=== PATIENT | female | born 1975 | race Asian ===

== ENCOUNTER 2019-06-06 12:48 | Outpatient (CLI) | payer OTHER ==
--- NOTE | 2019-06-06 16:38 | SLEEP CARE CONSULTATION ---
Information from patient questionnaire entered by Courtney Morrison. I have reviewed and concur with the information entered by Courtney Morrison. This document represents the service I personally performed and the decisions made by me, Jodi Christopher MD, [facility], [place]. History of Present Illness Reason for Visit: New patient Chief Complaint: reports: Snoring Duration of Symptoms: more than 10 years Usual bedtime: 10:30 pm Time it takes to fall asleep: 10-20 min Snores at night: Yes Sleeps alone due to snoring: No Number of times waking at night: 1-2 Toss, Turn, or Twitch while sleeping: Yes Recalls having dreams: Yes Usually gets out of bed at: 5:30am Feels refreshed in the morning: Yes Morning headache: Yes Sleepy or fatigued during the day: No Ever fallen asleep while driving: No Takes day naps: No Dreams during day naps: No Prior sleep studies: No Additional HPI information: I had the pleasure of seeing Ms. Valencia today regarding the possibility of her having a sleep disorder. As you know, she is a 44 year old lady who complains of loud snore. The patient tells me that she normally goes to bed around 10:30 pm, and it takes her approximately 10 - 20 minutes to fall asleep. She has not been told that she snores loudly or irregularly at night. She has never been observed to stop breathing in her sleep. Her spouse sleeps in the same bed. He has obstructive sleep apnea-hypopnea and uses a CPAP. She can recall waking up on the average of 1 - 2 times during the night. She has awakened occasionally because of choking and having to gasp for air. There is a lot of tossing and turning in her sleep. No somniloquy (sleep talking) or somnambulism (sleep walking). Generally she can recall having dreams. In the morning she usually gets up out of the bed around 5:30 a.m. not feeling refreshed nor rested. She occasionally a morning headache that does not last long. During the day she complains of feeling sleepy and fatigued. Her score on Rupert Sleepiness Scale is 8 out of 24. She has never fallen asleep while driving nor has had any accident due to sleepiness. She usually does not take naps during the day. Upon falling asleep during the day she denies having vivid dreams. She has had sleep paralysis. No symptoms of restless leg syndrome. She denies having impaired concentration during the day. 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 Patient is and lives in [place]. Have you smoked in the past 12 months: No Alcohol use: Yes Alcohol amount and frequency: 1 glass on occasion Caffeine use: No Family History Family history of sleep disordered breathing: No Allergies and Home Medications Drug allergies reviewed: Yes (NKDA) Home medication list reviewed: Yes (losartan) Review of Systems Cardiovascular: reports: high blood pressure Respiratory: denies: shortness of breath, wheeze, sputum production, chronic cough, other Gastrointestinal: denies: heartburn, difficulty swallowing, nausea, vomitting, diarrhea, abdominal pain, other Urinary: denies: incontinence, frequency, urgency, impotence, other Neurological: denies: headaches, seizure, head trauma, disorientation, speech dysfunction, gait or balance problems, fainting or unconsciousness, other Psychiatric: denies: Attention Deficit Hyperactivity, anxiety, depression, mood disorder, claustrophobia, other Ear/Nose/Throat: reports: nasal congestion Endocrine: denies: thyroid disease, history of goiter, sluggishness, too hot or cold, excessive thirst, increased appetite, increased urination, unexplained weakness, other Musculoskeletal: reports: back pain Immunologic: denies: sneezing, rash, itching, allergies to food or environment, other Physical Exam Height: 5 ft Weight: 110 lb (Physical exam was deferred due to the Covid-19 epidemic) Body Mass Index: 21.4 BMI Classification: Healthy weight Impression and Plan IMPRESSION: 1. Possible Obstructive Sleep Apnea-Hypopnea Syndrome, as suggested by history of loud snoring, nocturnal choking, and morning headache. Untreated obstructive sleep apnea can also cause hypertension. Pathophysiology of sleep-disordered breathing was discussed. I recommend proceeding to polysomnography to confirm the diagnosis and to assess severity. I informed the patient of what the sleep studies involve and after some discussion, she agreed to proceed. Plan: 1. Schedule an in-laboratory polysomnography. 2. Avoid long distance driving or when feeling sleepy. 3. Avoid alcohol, sedative and muscle relaxant around bedtime. 4. Return after the study to discuss results. I spent 100% of this visit face to face with the patient with greater than 50% of this was spent time counseling the patient and coordination of care.
== END 2019-06-06 12:49 | disposition home or self-care (01) ==
LOC: SC 12:48
PROVIDERS: ATTEND Internal Medicine Pulmonary Disease
DX: R06.83 Snoring (principal); R51 Headache
CPT/HCPCS: 99203; 99212

== ENCOUNTER 2019-06-15 20:35 | Outpatient (CLI) | payer OTHER | END 2019-06-15 20:36 | disposition home or self-care (01) | LOC: SC 20:35 | PROVIDERS: ATTEND Internal Medicine Pulmonary Disease | DX: R06.83 Snoring (principal); I10 Essential (primary) hypertension; R51 Headache | CPT/HCPCS: 95810 ==

== ENCOUNTER 2019-06-20 12:42 | Outpatient (CLI) | payer OTHER ==
--- NOTE | 2019-06-20 13:40 | SLEEP CARE CONSULTATION ---
Information from patient questionnaire entered by Courtney Morrison. I have reviewed and concur with the information entered by Courtney Morrison. This document represents the service I personally performed and the decisions made by me, Jodi Christopher MD, [facility]. History of Present Illness Initial [place] Sleepiness Scale score: 8 Current [place] Sleepiness Scale score: 8 Additional HPI information: HPI: returned for follow up of the sleep study she had on 06/15/19. The polysomnography showed that the patient had reduced sleep efficiency due to a prolonged awakening in the middle of the night. Except for mild sleep fragmentation, the sleep architecture was normal. Respiratory monitoring showed no significant sleep disordered breathing (AHI = 0.2) or hypoxia (alverto oxygen saturation of 92%). The patient did not sleep supine during this study (supine AHI = 0.0; non-supine = 0.18). Snore was light to moderate in intensity. There was no significant periodic leg movement of sleep. Cardiac rhythm was normal sinus rhythm without significant arrhythmia. No abnormal behavior (parasomnia) observed during the night. The patient was informed of these findings. I explained to her that the sleep study was normal. She did snore lightly to moderately loud. Allergies and Home Medications Drug allergies reviewed: Yes Home medication list reviewed: Yes Review of Systems Review of systems same as previous: Yes Physical Exam Vital signs obtained and entered by: Physical exam is deferred because the Coronavirus epidemic. Impression and Plan IMPRESSION: 1. Primary Snore (ICD-10 R06.83), light to moderate, but no significant sleep disordered breathing. The patient does not sleep supine at home. Oral appliancea mandibular advancing deviceis recommended for treatment of snore. PLAN: 1. Prescription made for an oral appliance for snore. She was recommended to give the treatment to her dentist. 2. Return for follow up on as needed basis. I spent 100% of this visit face to face with the patient with greater than 50% of this was spent time counseling the patient and coordination of care.
== END 2019-06-20 12:43 | disposition home or self-care (01) ==
LOC: SC 12:42
PROVIDERS: ATTEND Internal Medicine Pulmonary Disease
DX: R06.83 Snoring (principal)
CPT/HCPCS: 99212; 99213

== ENCOUNTER 2020-11-27 14:56 | Outpatient (CLI) | payer OTHER ==
--- NOTE | 2020-12-11 12:09 | Mammography Report ---
BILATERAL DIGITAL SCREENING MAMMOGRAM 3D/2D: 11/27/2020 CLINICAL: Routine screening. Comparison is made to exams dated: 12/30/2017 mammogram and 01/05/2017 mammogram - [facility]. The tissue of both breasts is heterogeneously dense. This may lower the sensitivity of mammograph y. No significant masses, calcifications, or other findings are seen in either breast. There has been no significant interval change. IMPRESSION: NEGATIVE There is no mammographic evidence of malignancy. A 1 year screening mammogram is recommended. This exam was interpreted at Station ID: [id number]. NOTE: For mammograms, a report in lay terms will be sent to the patient. Approximately 15% of breast malignancies will not be visualized mammographically. In the management of a palpable breast mass, a negative mammogram must not discourage biopsy of a clinically suspicious lesion. Electronically Signed By: Frank Jules M.D., jr/ioana:12/11/2020 10:21:42 ACR BI-RADS Category 1: Negative 3341F PARENCHYMAL PATTERN: (D) - The breast(s) demonstrate(s) heterogeneously dense fibroglandular shayy valdes. BI-RADS CATEGORY: (1) - 1 RECOMMENDATION: (ANNUAL) - Recommend routine annual screening mammography. [id number] 1 year screening LATERALITY: (B)
== END 2020-11-27 14:57 | disposition home or self-care (01) ==
LOC: DI.N 14:56
DX: Z12.31 Encounter for screening mammogram for malignant neoplasm of breast (principal)

== ENCOUNTER 2023-11-15 07:30 | Outpatient (CLI) | payer OTHER ==
[2023-11-15 14:15] LABS: CALCIUM 9.2 mg/dL (8.5-10.3); CREATININE 0.6 mg/dL (0.6-1.3); POTASSIUM 3.6 mmol/L (3.5-4.5)
[2023-11-15 14:37] LABS: BASOPHILS % (AUTO) 0.9 %; EOSINOPHILS # (AUTO) 0.1 10^3/uL (0.0-0.7); EOSINOPHILS % (AUTO) 3.4 %; HCT - HEMATOCRIT 40.3 % (37.0-47.0); HGB - HEMOGLOBIN 13.1 g/dL (12.0-16.0); LYMPHOCYTES # (AUTO) 1.1 10^3/uL (1.5-3.5); LYMPHOCYTES % (AUTO) 30.4 %; MEAN CORPUSCULAR HEMOGLOBIN 27.6 pg (27.0-31.0); MEAN CORPUSCULAR HGB CONC 32.5 g/dL (32.0-36.0); MEAN PLATELET VOLUME 8.6 fL (7.9-10.8); MONOCYTES # (AUTO) 0.4 10^3/uL (0.0-1.0); MONOCYTES % (AUTO) 9.9 %; NEUTROPHILS % (AUTO) 55.4 %; PLT - PLATELET COUNT 411 10^3/uL (130-450); RED BLOOD COUNT 4.74 10^6/uL (4.20-5.40); RED CELL DISTRIBUTION WIDTH 12.3 % (12.0-15.0); WHITE BLOOD COUNT 3.5 x10^3/uL (4.8-10.8)
[2023-11-15 14:47] LABS: THYROID STIMULATING HORMONE 1.68 uIU/mL (0.34-5.60)
== END 2023-11-15 07:45 | disposition home or self-care (01) ==
LOC: LAB.N 07:30
PROVIDERS: ATTEND Family Medicine
DX: N94.6 Dysmenorrhea, unspecified (principal)
CPT/HCPCS: 36415; 80048; 83001; 83540; 84443; 84466; 85025

== ENCOUNTER 2023-12-06 15:48 | Outpatient (CLI) | payer OTHER ==
--- NOTE | 2023-12-07 12:44 | Ultrasound Report ---
PROCEDURE: Pelvic w/Transvaginal INDICATIONS: DYSMENORRHEA TECHNIQUE: Real-time scanning was performed of the pelvic organs, with image documentation. Additional endovagi nal scanning was necessary due to incomplete visualization of the adnexal and endometrial structures by transabdominal scanning. COMPARISON: None. FINDINGS: Uterus: Uterus is retroverted and normal in size at 7.2 x 4.9 x 5.4 cm. The myometrium is heterogen eous with mildly increased vascularity. The endometrium measures 7.7 mm in combined thickness. Ovaries: The right ovary measures 3.0 x 2.4 x 3.3 cm, with a calculated ovarian volume of 12.2 cc. The left ovary measures 2.9 x 1.6 x 2.5 cm, with a calculated ovarian volume of 5.9 cc. The ovaries have a normal sonographic appearance. Less than 12 follicles can be seen in each ovary. No adnexal masses are seen. No cystic lesions measuring greater than 3 cm. Right ovarian simple cyst measures 2. 6 x 1.4 x 2.7 cm. There is a simple left paraovarian cyst measuring up to 1.2 cm. Other: No pathologic free abdominal or pelvic fluid. IMPRESSION: No acute sonographic abnormality. Heterogeneous appearance of the uterus can be seen in the setting o f adenomyosis. Recommend clinical correlation. Reviewed by: Real Oglesby MD on 12/07/2023 11:43 AM GIL Approved by: Real Oglesby MD on 12/07/2023 11:43 AM GIL Station ID: [id number]
== END 2023-12-06 15:49 | disposition home or self-care (01) ==
LOC: DI 15:48
PROVIDERS: ATTEND Family Medicine
DX: N94.6 Dysmenorrhea, unspecified (principal)